=== PATIENT | male | born 1950 | race Caucasian/White ===

== ENCOUNTER → 2021-03-13 10:10 | Outpatient (CLI) | payer MEDICARE, SELFPAY | PROVIDERS: Visit Provider Urology | DX: R30.0 Dysuria (principal); N21.0 Calculus in bladder; R97.20 Elevated prostate specific antigen [PSA]; R31.29 Other microscopic hematuria; N40.2 Nodular prostate without lower urinary tract symptoms; R35.0 Frequency of micturition; R82.81 Pyuria; R20.0 Anesthesia of skin; Z68.22 Body mass index [BMI] 22.0-22.9, adult | CPT/HCPCS: 51798; 81002; 87086; 99215 ==

== ENCOUNTER → 2021-04-10 07:59 | Outpatient (CLI) | payer MEDICARE, SELFPAY | PROVIDERS: Visit Provider Urology | DX: N20.0 Calculus of kidney (principal); N21.0 Calculus in bladder; R35.0 Frequency of micturition; R97.20 Elevated prostate specific antigen [PSA]; R31.29 Other microscopic hematuria; Z80.42 Family history of malignant neoplasm of prostate | CPT/HCPCS: 81002; 87086; 99214 ==

== ENCOUNTER → 2021-05-07 08:56 | Outpatient (CLI) | payer MEDICARE, SELFPAY ==
[2021-05-07 09:19] LABS: COVID19 -Nasal RAPID Negative (Negative)
== END ==
PROVIDERS: Visit Provider Urology
DX: Z20.822 Contact with and (suspected) exposure to COVID-19 (principal)
CPT/HCPCS: 87635; C9803

== ENCOUNTER 2021-05-09 07:00 | Day surgery (SDC) | payer MEDICARE, SELFPAY ==
[2021-05-02 08:14] VITALS: BMI 21.6
[2021-05-09] VITALS (9 sets, daily range): BP systolic 124–150; BP diastolic 55–88; PULSE 54–67; RESP 7–18; TEMP 36.2–36.6; O2SAT 94–97; BMI 21.6
--- NOTE | 2021-05-09 07:41 | PM.PREOP ---
Pre-operative Note COVID-19 COVID-19 status: Negative Result date/Date tested (Pos, Neg/Pending): 05/07/21 Interval Note History & Physical reviewed/Exam performed by Physician: Yes Changes to H&P: No
[2021-05-09] MEDS: CEFAZOLIN 1 GM VIAL 2 GM IV (08:00)
--- NOTE | 2021-05-09 08:26 | SUR.OPER ---
Lithotomy on padded OR bed, head on pillow, arms secured on padded arm boards at <90 degrees abduction. Legs secured in padded yellow fins stirrups.
[2021-05-09] MEDS: LIDOCAINE 2% (GLYDO) 6 ML GEL TOP (08:38)
--- NOTE | 2021-05-09 09:10 | SUR.OPER ---
Addendum entered by Hunter Cohen R.N. 05/09/21 09:42: final 32watt, 29.510 min, 56.649kJ Original Note: laser time 28.54min, 32watts, 55.479kJ
[2021-05-09] MEDS: BELLADONNA/OPIUM SUPPOSITORIES 1 EACH PR (09:38)
--- NOTE | 2021-05-09 10:21 | PM.OP.1 ---
Procedure & Clinicians Procedure: Laser cystolitholapaxy Same procedure as scheduled: Yes Indications: Very pleasant gentleman with a large bladder calculus presents today for cysto litholapaxy. Surgeon: Vinny Estrada Click Yes if Unassisted: Yes Anesthesia Type: General Operative Notes Findings: Urethra normal prostatic fossa which shows minimal to moderate obstructive character. He does have an elevated bladder neck. There is a large crystalline stone in the floor of the bladder which appeared to be in the 3-3 and 0.5 cm range. The superficial layer was very crystalline cleared of whitish in color and softer. The inner core was hard brown polanco and irregular. Ureteral orifices in normal position with clear efflux normal bladder mucosa. Closure Type: not applicable Applied: catheter Estimated Blood Loss (mL): 50 Blood products transfused: none Procedure in detail: After informed consent was obtained the patient was identified and brought to the operating room. In the operating room he was placed in a supine position the table anesthesia was induced. He was then transitioned to the lithotomy position prepped with a sterilizing prepped draped in a sterile fashion for transurethral procedure. After prepping and draping ensuring an adequate love anaesthesia a laser resectoscope was then inserted and cystoscopy performed. The laser fiber was then put in place and using laser energy the stone was fragmented sequentially. The laser was set to the ?bladder stone ?setting. The outer surface was quite soft and easily broken up the inner core was very hard but was then broken up. Laser fiber was then removed after being placed on standby and helix evacuator was then used to evacuate fragments. The laser fiber was then reinserted and points of bleeding controlled with the cautery setting on the laser. Some of the fragments were adherent to the wall of the bladder and the laser scope was removed with the laser on standby. Cystoscope was inserted and then using a grasping forceps as much of the stony debris, as could be safely dislodged from the wall of the bladder, was dislodged. With this achieved and the majority of the fragments removed the bladder was filled drained in fill hemostasis was adequate. The bladder was left full scope was removed and a Harry catheter 22 [place] tip was passed through the urethra and into the bladder after instilling 2% viscous lidocaine into the urethra. Balloon was filled 10 cc of sterile water and placed to gravity drainage. Prior to being placed to gravity drainage the bladder was irrigated to the urine was blush colored. With this in place the catheter was placed to gravity drainage again and transferred to the postanesthesia care unit having tolerated the procedure well. The patient is to follow-up in my office next Thursday morning for catheter removal. Patient will be discharged with Pyridium and Ditropan. Complications: none Post-operative Condition: stable Disposition: PACU Plan for aftercare: Patient is to be discharged home to follow-up as noted above.
[2021-05-09] MEDS: PHENAZOPYRIDINE 100 MG TABLET 200 MG PO (10:35)
[2021-05-09] MEDS: ACETAMINOPHEN 325 MG TABLET 650 MG PO (10:36)
[2021-05-09] MEDS: OXYBUTYNIN 5 MG TABLET PO (10:37)
[2021-05-16 09:34] LABS: Ca oxalate dihydrate 70 % (.); Ca oxalate monohydr 30 % (.); Size 5x5 mm (.)
== END 2021-05-09 11:00 | disposition home or self-care (01) ==
PROVIDERS: Referring Provider Urology; Visit Provider Urology
PROC: 0TCB8ZZ Extirpation of Matter from Bladder, Via Natural or Artificial Opening Endoscopic (ICD-10-PCS; CPT 52318; principal; 2021-05-09 07:45)
DX: N21.0 Calculus in bladder (principal)
CPT/HCPCS: 52318; 82365; 82962; J0690; J2405; J2704; J3010

== ENCOUNTER 2021-05-10 14:42 | Emergency (ER) | payer MEDICARE, SELFPAY ==
[2021-05-10] VITALS (8 sets, daily range): BP systolic 104–129; BP diastolic 55–60; PULSE 61–100; RESP 15–24; TEMP 37.6–38.1; O2SAT 94–95; BMI 22.1
--- NOTE | 2021-05-10 14:55 | DI.RAD.S_ITS ---
PROCEDURE: XR CHEST 1V INDICATIONS: suspected sepsis TECHNIQUE: One view of the chest was acquired. COMPARISON: None. FINDINGS: Surgical changes and devices: None. Lungs and pleura: Lungs are clear. No pleural effusions or pneumothorax. Lungs hyperinflated suggesting COPD. Mediastinum: Mediastinal contours appear normal. Heart size is normal. Bones and chest wall: No suspicious bony lesions. Overlying soft tissues appear unremarkable. IMPRESSION: No acute cardiopulmonary disease process. Dictated by: Yadira Garduno MD, PhD on 05/10/2021 at 15:12 Approved by: Yadira Garduno MD, PhD on 05/10/2021 at 15:13
[2021-05-10] MEDS: SODIUM CHLORIDE 0.9% 1,000 ML 1000 ML IV ×2 (15:13→16:49)
[2021-05-10 15:36] LABS: Add Manual Diff / Slide Review NO; Basophils Absolute Auto 0 /uL (0-100); Basophils Percent Auto 0.3 % (0-2); Eosinophils Absolute Auto 0 /uL (0-450); Hematocrit 43.4 % (41-53); Hemoglobin 14.6 g/dL (13.5-17.5); Lymphocytes Absolute Auto 300 /uL (1100-4500); Mean Corpuscular HGB Conc 33.5 % (30-36); Mean Corpuscular Hemoglobin 32.5 PG (26-34); Mean Corpuscular Volume 96.8 fL (80-100); Monocytes Absolute Auto 600 /uL (0-900); Monocytes Percent Auto 3.8 % (3-14); Neutrophils Absolute Auto 15200 /uL (1500-7000); Neutrophils Percent Auto 93.9 % (50-75); Platelet Count 210 X10^3/uL (150-400); Red Blood Cell Count 4.48 X10^6/uL (4.5-5.9); Red Cell Distribution Width 14.1 % (11.6-14.8); White Blood Cell Count 16.2 X10^3/uL (4.5-11.0)
[2021-05-10 15:54] LABS: Lactate (Lactic Acid) 1.4 mmol/L (0.7-2.1)
[2021-05-10 15:57] LABS: Alanine Aminotransferase 21 IU/L (<50); Albumin 3.8 g/dL (3.5-5.0); Albumin Globulin Ratio 1.1 (1.0-2.8); Alkaline Phosphatase 47 U/L (38-126); Aspartate Aminotransferase 36 IU/L (17-59); BUN Creatinine Ratio 18.1 (6-22); Bilirubin Total 0.7 mg/dL (0.2-1.3); Blood Urea Nitrogen 32 mg/dL (9-20); Calcium 9.4 mg/dL (8.4-10.2); Carbon Dioxide 22 mmol/L (22-32); Chloride 102 mmol/L (98-107); Globulin 3.4 g/dL (1.7-4.1); Glucose 127 mg/dL (80-110); HEMOLYSIS 20 (0-50); Lipase 16 U/L (23-300); Potassium 3.9 mmol/L (3.4-5.1); Sodium 131 mmol/L (137-145); Total Protein 7.2 g/dL (6.3-8.2)
[2021-05-10 16:12] LABS: Procalcitonin 10.2 ng/mL (<0.5)
--- NOTE | 2021-05-10 16:36 | ED.SEPSIS ---
HPI - Sepsis General Chief Complaint: Fever Mode of arrival: Wheelchair Source: patient Limitations: no limitations Evaluation Sepsis Screen: Possible Sepsis Risk Sepsis Infection Criteria Present: Suspected New Infection Narrative: Patient is a 71-year-old male With history of kidney stones and bladder stone presenting stone removal yesterday and Harry catheter has been placed. He has been dizzy weak and increased falls. He is currently febrile with a temperature a 100.8?. says that he has been sleeping most of the day and yesterday as well. She denies any confusion. However when patient stands up he gets little bit dizzy and lightheaded. He has hit his head but no loss of consciousness. He is not on any antiplatelet or anticoagulation medication. He has no new numbness tingling or weakness. He has no abdominal pain chest pain or shortness of breath. Harry catheter is in place. Review of Systems Review of Systems Narrative: GENERAL:+ fever, see HPI HEENT: Denies sinus pain, ear pain, sore throat, difficulty swallowing, neck pain RESPIRATORY: Denies dyspnea, cough, wheezing, hemoptysis, sputum. CARDIOVASCULAR: Denies chest pain, palpitations, orthopnea, edema GASTROINTESTINAL: Denies nausea, vomiting, abdominal pain, diarrhea, constipation, melena. : See HPI MUSCULOSKELETAL: Denies weakness, joint pain, or bony pain SKIN: No rash, no erythema, no pruritus NEUROLOGIC: Denies weakness, dizziness, headache, numbness, change in speech, confusion PSYCHIATRIC: No concerning psychosocial issues. 12 point review of systems is negative except for those stated above and HPI Patient History Medical History (Updated 05/10/21 @ 19:05 by Janie Johns DO) Bladder calculus Elevated PSA Family history of prostate cancer Hematuria Kidney stones Prostate nodule Pyuria Renal calculus Urinary frequency Surgical History (Updated 05/02/21 @ 08:22 by Terra Veliz RN) Hx of vasectomy (1984) Social History household members: significant other Smoking Status: Never smoker alcohol intake: current Smoking Status: Never smoker alcohol intake frequency: a few times a week Substance Use Type: does not use Exam Initial Vital Signs Initial Vital Signs: Vital Signs Temperature 100.5 F H 05/10/21 14:51 Pulse Rate 100 H 05/10/21 14:51 Respiratory Rate 20 05/10/21 14:51 Blood Pressure 104/55 L 05/10/21 14:51 Pulse Oximetry 94 05/10/21 14:51 GENERAL: Alert 71-year-old male appears to not feel well HEENT: Head atraumatic, no laceration depression crepitation pupils reactive, face symmetric, moist mucous membranes NECK: Neck is supple full flexion and extension CARDIOVASCULAR: Regular rate and rhythm without murmurs, rubs or gallops. RESPIRATORY: Breath sounds equal bilaterally, no wheezes rales or rhonchi. ABDOMEN: Soft, nontender. Normoactive bowel sounds all 4 quadrants. No guarding or rebound. : Harry catheter in place EXTREMITIES: Normal range of motion, no clubbing or edema. Neurovascularly intact NEUROLOGICAL: Alert and oriented x4.Normal gait and speech. Security Installer strength equal bilaterally SKIN: Warm, dry, no laceration, no petechiae, no rashes or lesions. Scores NIH Stroke Scale Level of Conciousness: Alert, keenly responsive Ask month/age: Answers both questions correctly. Open/close eyes, close hand: Performs both tasks correctly Best gaze horizontal: Normal Visual fleming: No visual loss Facial palsy: Normal symetrical movement Left arm drift: No drift for full 10 sec Right arm drift: No drift for full 10 sec Left leg drift: No drift for full 5 sec Right leg drift: No drift for full 5 sec Limb ataxia: Absent Sensory on face/arms/legs: Normal, no sensory loss Best language: No aphasia, normal Dysarthria: Normal Extinction or inattention: No abnormality Total NIH Stroke scale score: 0 Course Orders Ordered: ED Orders 05/10/21 14:55 XR chest 1V Stat EKG-12 Lead Stat RT Consult Eval and Treat Now 05/10/21 15:00 Complete Blood Count AUTO DIFF Stat Comprehensive Metabolic Panel Stat Lactate (Lactic Acid) Stat Lipase Stat Procalcitonin Stat 05/10/21 15:24 Blood Culture Stat 05/10/21 17:50 COVID19 -Nasal swab/Pre-Proc Stat Urinalysis and Microscopic Stat Urine Culture Stat 05/10/21 18:26 CT head/brain wo con Stat Discontinued Medications Acetaminophen (Acetaminophen 325 Mg Tablet) 975 mg PO NOW ONE Stop: 05/10/21 16:37 Last Admin: 05/10/21 16:48 Dose: 975 mg Documented by: SIOBHAN Sodium Chloride (Normal Saline 0.9%) 1,000 mls @ 1,000 mls/hr IV BOLUS ONE Stop: 05/10/21 15:54 Last Infusion: 05/10/21 16:35 Dose: 0 mls/hr Documented by: Admin: 05/10/21 15:13 Dose: 1,000 mls/hr Documented by: DARON Sodium Chloride (Normal Saline 0.9%) 1,000 mls @ 1,000 mls/hr IV BOLUS ONE Stop: 05/10/21 17:35 Last Infusion: 05/10/21 18:06 Dose: 1,000 mls/hr Documented by: Admin: 05/10/21 16:49 Dose: 1,000 mls/hr Documented by: SIOBHAN Ceftriaxone Sodium 1,000 mg/ (Sodium Chloride) 100 mls @ 200 mls/hr IV NOW ONE Stop: 05/10/21 18:27 Last Infusion: 05/10/21 19:31 Dose: 0 mls/hr Documented by: Admin: 05/10/21 18:41 Dose: 200 mls/hr Documented by: SIOBHAN Vital Signs Vital signs: Vital Signs - 8 hr 05/10/21 14:51 05/10/21 16:36 05/10/21 17:00 Temperature 100.5 F H Pulse Rate 100 H 86 82 Respiratory Rate 20 15 24 Blood Pressure 104/55 L 126/60 Pulse Oximetry 94 95 94 05/10/21 17:30 05/10/21 18:00 05/10/21 18:04 Temperature 99.6 F Pulse Rate 80 66 Respiratory Rate 24 24 Blood Pressure 129/60 Pulse Oximetry 94 95 05/10/21 18:30 05/10/21 19:00 Temperature Pulse Rate 73 61 Respiratory Rate 22 Blood Pressure 129/60 Pulse Oximetry 94 95 MDM - Sepsis Lab Data Result diagrams: 05/10/21 15:00 05/10/21 15:00 Labs: Lab Results 05/10/21 05/10/21 05/10/21 Range/Units 15:00 15:00 15:00 WBC 16.2 H (4.5-11.0) X10^3/uL RBC 4.48 L (4.5-5.9) X10^6/uL Hgb 14.6 (13.5-17.5) g/dL Hct 43.4 (41-53) % MCV 96.8 (80-100) fL MCH 32.5 (26-34) PG MCHC 33.5 (30-36) % RDW 14.1 (11.6-14.8) % Plt Count 210 (150-400) X10^3/uL Neut % (Auto) 93.9 H (50-75) % Lymph % (Auto) 2.0 L (25-40) % [place] % (Auto) 3.8 (3-14) % Eos % (Auto) 0.0 L (2-4) % Baso % (Auto) 0.3 (0-2) % Neut # (Auto) 59181 H (5556-8287) /uL Lymph # (Auto) 300 L (0524-0991) /uL [place] # (Auto) 600 (0-900) /uL Eos # (Auto) 0 (0-450) /uL Baso # (Auto) 0 (0-100) /uL Sodium 131 L (137-145) mmol/L Potassium 3.9 (3.4-5.1) mmol/L Chloride 102 (98-107) mmol/L Carbon Dioxide 22 (22-32) mmol/L BUN 32 H (9-20) mg/dL Creatinine 1.77 H (0.66-1.25) mg/dL Estimated GFR 38.0 L (>60) mL/min BUN/Creatinine Ratio 18.1 (6-22) Glucose 127 H (80-110) mg/dL Lactate 1.4 (0.7-2.1) mmol/L Calcium 9.4 (8.4-10.2) mg/dL Total Bilirubin 0.7 (0.2-1.3) mg/dL AST 36 (17-59) IU/L ALT 21 (<50) IU/L Alkaline Phosphatase 47 (38-126) U/L Total Protein 7.2 (6.3-8.2) g/dL Albumin 3.8 (3.5-5.0) g/dL Globulin 3.4 (1.7-4.1) g/dL Albumin/Globulin Ratio 1.1 (1.0-2.8) Lipase 16 L (23-300) U/L Procalcitonin 10.2 H (<0.5) ng/mL Urine Color Urine Appearance Urine pH (4.5-8.0) Ur Specific [place] (1.000-1.035) Urine Protein (Negative) Urine Glucose (UA) (Negative) g/dL Urine Ketones (NEGATIVE) Urine Occult Blood (Negative) Urine Nitrate (Negative) Urine Bilirubin (NEGATIVE) Urine Urobilinogen (0.2) E.U./dL Ur Leukocyte Esterase (NEGATIVE) Urine RBC (0-5/HPF) Urine WBC (0-5/HPF) Ur Squamous Epith Cells (0-5/HPF) Amorphous Sediment Urine Bacteria (None) Urine Mucus (Negative) Ur Culture Indicated? SARS-CoV-2 (PCR) (Negative) 05/10/21 05/10/21 Range/Units 17:50 17:50 WBC (4.5-11.0) X10^3/uL RBC (4.5-5.9) X10^6/uL Hgb (13.5-17.5) g/dL Hct (41-53) % MCV (80-100) fL MCH (26-34) PG MCHC (30-36) % RDW (11.6-14.8) % Plt Count (150-400) X10^3/uL Neut % (Auto) (50-75) % Lymph % (Auto) (25-40) % [place] % (Auto) (3-14) % Eos % (Auto) (2-4) % Baso % (Auto) (0-2) % Neut # (Auto) (8140-9920) /uL Lymph # (Auto) (5583-5584) /uL [place] # (Auto) (0-900) /uL Eos # (Auto) (0-450) /uL Baso # (Auto) (0-100) /uL Sodium (137-145) mmol/L Potassium (3.4-5.1) mmol/L Chloride (98-107) mmol/L Carbon Dioxide (22-32) mmol/L BUN (9-20) mg/dL Creatinine (0.66-1.25) mg/dL Estimated GFR (>60) mL/min BUN/Creatinine Ratio (6-22) Glucose (80-110) mg/dL Lactate (0.7-2.1) mmol/L Calcium (8.4-10.2) mg/dL Total Bilirubin (0.2-1.3) mg/dL AST (17-59) IU/L ALT (<50) IU/L Alkaline Phosphatase (38-126) U/L Total Protein (6.3-8.2) g/dL Albumin (3.5-5.0) g/dL Globulin (1.7-4.1) g/dL Albumin/Globulin Ratio (1.0-2.8) Lipase (23-300) U/L Procalcitonin (<0.5) ng/mL Urine Color Yellow Urine Appearance Cloudy Urine pH 5.5 (4.5-8.0) Ur Specific [place] 1.015 (1.000-1.035) Urine Protein 2+ H (Negative) Urine Glucose (UA) Negative (Negative) g/dL Urine Ketones Trace H (NEGATIVE) Urine Occult Blood 3+ H (Negative) Urine Nitrate Negative (Negative) Urine Bilirubin Negative (NEGATIVE) Urine Urobilinogen 0.2 (0.2) E.U./dL Ur Leukocyte Esterase 2+ H (NEGATIVE) Urine RBC 10-30/hpf H (0-5/HPF) Urine WBC 30-100/hpf H (0-5/HPF) Ur Squamous Epith Cells 0-1 /hpf (0-5/HPF) Amorphous Sediment 1+ Urine Bacteria Moderate (10-30) H (None) Urine Mucus 1+ H (Negative) Ur Culture Indicated? Specimen cultured SARS-CoV-2 (PCR) Negative (Negative) Urine Dip Bedside Urine Glucose Negative Bedside Urine Bilirubin - Negative Bedside Urine Ketone - Negative Urine Specific [place] 1.015 Bedside Urine Occult Blood +++ Bedside Urine pH 6.0 Bedside Urine Protein + 30 Bedside Urine Urobilinogen - Negative Bedside Urine Nitrite - Negative Bedside Urine Leukocytes ++ 125 Esterase Imaging Data Chest x-ray: Radiologist's Impression: PROCEDURE:? XR CHEST 1V ? INDICATIONS:? suspected sepsis ? TECHNIQUE:? One view of the chest was acquired.? ? COMPARISON:? None. ? FINDINGS:? ? Surgical changes and devices:? None.? ? Lungs and pleura:? Lungs are clear.? No pleural effusions or pneumothorax.? Lungs hyperinflated suggesting COPD.? ? Mediastinum:? Mediastinal contours appear normal.? Heart size is normal.? ? Bones and chest wall:? No suspicious bony lesions.? Overlying soft tissues appear unremarkable.? ? IMPRESSION:? No acute cardiopulmonary disease process. ? ? Dictated by: Yadira Garduno MD, PhD on 05/10/2021 at 15:12 ? ? ECG Data Interpretation: Normal sinus rhythm rate 97 year interval 160 QRS [address] changes MDM Narrative Medical decision making narrative: Patient is postoperative day 1. After lithotripsy of bladder calculus presenting with low-grade fever of 100.5 leukocytosis and UTI. Vitals have been within normal limits does not meet severe sepsis criteria. He is given a L of fluid and antibiotics in the emergency department. He has no new focal attic deficits causing dizziness I suspect it is fever and infection. Nonetheless head CT is done and does not show any abnormality. Discussed with and patient home outpatient antibiotics and return as needed. Both are in agreeance to this plan. Discharge Plan Departure Patient Disposition: Home Clinical Impression: Acute UTI Instructions: DI for Urinary Tract Infection (UTI) Activity Restrictions/Additional Instructions: *You have been diagnosed with UTI *What to do: At this time you have an infection which is likely causing the increased sleepiness. Please stay hydrated and take antibiotics as directed. l *Continue to take medications as directed Tylenol 650 mg every 4-6 hours if needed for fever or pain Keflex 500 mg twice a day for 10 days *Follow up with your primary care provider in 2-3 days Follow-up with urology next week *Return to ER if you should have increasing confusion, increasing weakness, not tolerating fluidsany new, worsening or concerning symptoms Prescriptions: No Action oxybutynin chloride 5 mg tablet 5 mg PO BID-TID PRN (Reason: bladder spasms) Qty: 30 RF: 0 phenazopyridine [Pyridium] 200 mg tablet 200 mg PO TID PRN (Reason: Bladder irritation) Qty: 30 RF: 0 Referrals: Vinny Estrada MD [Physician] -
[2021-05-10] MEDS: ACETAMINOPHEN 325 MG TABLET 975 MG PO (16:48)
[2021-05-10 18:07] LABS: Appearance Urine UA CLOUDY; Bilirubin Urine UA NEGATIVE (NEGATIVE); Color Urine UA YELLOW; Glucose Urine UA NEGATIVE (Negative); Ketones Urine UA TRACE (NEGATIVE); Leukocyte Esterase Urine UA 2+ (NEGATIVE); Nitrite Urine UA NEGATIVE (Negative); Occult Blood Urine UA 3+ (Negative); Protein Urine UA 2+ (Negative); Specific Gravity Urine UA 1.015 (1.000-1.035); Urobilinogen Urine UA 0.2 E.U./dL (0.2); pH Urine UA 5.5 (4.5-8.0)
[2021-05-10 18:15] LABS: Amorphous Sediment Urine 1+; Bacteria Urine Moderate (10-30); RBC Urine 10-30/HPF (0-5/HPF); Squamous Epithelial Cell Urine 0-1 /HPF (0-5/HPF); WBC Urine 30-100/HPF (0-5/HPF)
[2021-05-10 18:16] LABS: Culture Indicated Urine Specimen Cultured; Mucus Urine 1+ (Negative)
--- NOTE | 2021-05-10 18:26 | DI.CT.S_ITS ---
PROCEDURE: CT HEAD/BRAIN WO CON INDICATIONS: weakness falls TECHNIQUE: Noncontrast 4.5 mm thick angled axial sections acquired from the foramen magnum to the vertex, with coronal and sagittal reformats. For radiation dose reduction, the following was used: automated exposure control, adjustment of mA and/or kV according to patient size. COMPARISON: None. FINDINGS: Image quality: Excellent. CSF spaces: Basal cisterns are patent. No extra-axial fluid collections. The ventricles are symmetric in size and shape. Brain: No intracranial bleeds or masses. There is cerebral volume loss for age, with resultant ventricular and sulcal prominence. There are periventricular and deep white matter chronic small vessel ischemic changes. There is intracranial internal carotid artery atherosclerosis. Skull and face: Calvarium and visualized facial bones appear intact, without suspicious lesions. Sinuses: Visualized sinuses and mastoids are clear. IMPRESSION: 1. No CT evidence of acute intracranial process. 2. Age-appropriate exam. Dictated by: Genoveva Hills M.D. on 05/10/2021 at 19:02 Approved by: Genoveva Hills M.D. on 05/10/2021 at 19:06
[2021-05-10] MEDS: cefTRIAXone 1,000 MG in SODIUM CHLORIDE 0.9% 100 ML 200 ML IV (18:41)
[2021-05-10 19:00] LABS: COVID19 -Nasal RAPID Negative (Negative)
== END 2021-05-10 19:34 | disposition home or self-care (01) ==
PROVIDERS: Emergency Provider Emergency Medicine
DX: N39.0 Urinary tract infection, site not specified (principal); S09.90XA Unspecified injury of head, initial encounter; R29.6 Repeated falls; Z20.822 Contact with and (suspected) exposure to COVID-19
CPT/HCPCS: 36415; 70450; 71045; 80053; 81001; 81003; 83605; 83690; 84145; 85025; 87040; 87086; 87635; 93005; 96361; 96365; 99284; C9803; J0696

== ENCOUNTER → 2021-05-31 09:50 | Outpatient (CLI) | payer MEDICARE, SELFPAY | PROVIDERS: Visit Provider Urology | DX: R35.0 Frequency of micturition (principal) | CPT/HCPCS: 87086 ==

== ENCOUNTER → 2021-05-31 11:16 | Outpatient (CLI) | payer MEDICARE, SELFPAY ==
--- NOTE | 2021-05-31 | DI.RAD.S_ITS ---
PROCEDURE: XR KUB INDICATIONS: Calculus of kidney, calculus ib bladder TECHNIQUE: One view of the abdomen acquired. COMPARISON: None. FINDINGS: Surgical changes and devices: None. Bowel: Bowel gas pattern is normal. Soft tissues: No suspicious abdominal calcifications. Visualized solid organ contours appear normal in size. No renal calculi identified. Moderately large fecal debris. Bones: No suspicious bony lesions. IMPRESSION: Moderately large fecal debris. No renal calculi identified. Dictated by: Linden Taylor M.D. on 05/31/2021 at 11:51 Approved by: Linden Taylor M.D. on 05/31/2021 at 11:53
== END ==
PROVIDERS: Referring Provider Urology; Visit Provider Urology
DX: N21.0 Calculus in bladder (principal); N20.0 Calculus of kidney; R35.0 Frequency of micturition; N39.44 Nocturnal enuresis; R97.20 Elevated prostate specific antigen [PSA]; R31.29 Other microscopic hematuria; R82.81 Pyuria; Z80.42 Family history of malignant neoplasm of prostate
CPT/HCPCS: 74018; 81002; 87086; 99214

== ENCOUNTER → 2021-06-11 10:09 | Outpatient (CLI) | payer MEDICARE, SELFPAY | PROVIDERS: Referring Provider Urology; Visit Provider Urology | DX: N39.0 Urinary tract infection, site not specified (principal); N39.44 Nocturnal enuresis; N20.0 Calculus of kidney; N21.0 Calculus in bladder; R97.20 Elevated prostate specific antigen [PSA]; R35.0 Frequency of micturition; Z80.42 Family history of malignant neoplasm of prostate; R82.81 Pyuria; R31.29 Other microscopic hematuria; Z68.21 Body mass index [BMI] 21.0-21.9, adult | CPT/HCPCS: 81002; 87086; 99214 ==

== ENCOUNTER → 2024-01-27 15:14 | Outpatient (CLI) | payer MEDICARE, SELFPAY | PROVIDERS: Visit Provider Urology | DX: R35.0 Frequency of micturition (principal) | CPT/HCPCS: 87086 ==

== ENCOUNTER → 2024-01-27 15:43 | Outpatient (CLI) | payer MEDICARE, SELFPAY ==
--- NOTE | 2024-01-27 15:45 | DI.RAD.S_ITS ---
PROCEDURE: XR KUB INDICATIONS: Rule out bladder calculus TECHNIQUE: One view of the abdomen acquired. COMPARISON: None. FINDINGS: Surgical changes and devices: None. Bowel: Bowel gas pattern is normal. Soft tissues: No suspicious abdominal calcifications. Visualized solid organ contours appear normal in size. Several pelvic phleboliths as well as calcification the prostate noted. Degenerative changes in the lumbar spine. Moderate fecal debris throughout the colon Bones: No suspicious bony lesions. IMPRESSION: Limited assessment of the bladder with overlying pelvic phleboliths and probable prostatic calcification. Bladder calculi not excluded. Consider follow-up CT pelvis Approved by: Maco Elizondo M.D. on 01/27/2024 at 19:37
== END ==
PROVIDERS: Referring Provider Urology; Visit Provider Urology
DX: N20.0 Calculus of kidney (principal); R35.0 Frequency of micturition; Z87.442 Personal history of urinary calculi; Z87.448 Personal history of other diseases of urinary system
CPT/HCPCS: 74018; 87086

== ENCOUNTER → 2024-02-10 11:36 | Outpatient (CLI) | payer MEDICARE, SELFPAY ==
[2024-02-10 13:29] LABS: Appearance Urine UA CLOUDY; Bilirubin Urine UA NEGATIVE (NEGATIVE); Color Urine UA YELLOW; Glucose Urine UA NEGATIVE (Negative); Ketones Urine UA NEGATIVE (NEGATIVE); Leukocyte Esterase Urine UA 1+ (NEGATIVE); Nitrite Urine UA NEGATIVE (Negative); Occult Blood Urine UA 3+ (Negative); Protein Urine UA 1+ (Negative); Urobilinogen Urine UA 0.2 E.U./dL (0.2); pH Urine UA 5.5 (4.5-8.0)
[2024-02-10 13:38] LABS: Bacteria Urine None Seen; Culture Indicated Urine Specimen Cultured; RBC Urine 10-30/HPF (0-5/HPF); Squamous Epithelial Cell Urine 1-5 /HPF (0-5/HPF); Urine Volume 10mL (spun); WBC Urine 5-10/HPF (0-5/HPF)
== END ==
PROVIDERS: Urology; Referring Provider Specialist; Visit Provider Specialist
DX: N21.0 Calculus in bladder (principal); R31.29 Other microscopic hematuria; R35.0 Frequency of micturition; R82.81 Pyuria; N20.0 Calculus of kidney; N39.44 Nocturnal enuresis; Z87.448 Personal history of other diseases of urinary system
CPT/HCPCS: 81001; 87086

== ENCOUNTER → 2024-02-17 13:27 | Outpatient (CLI) | payer MEDICARE, SELFPAY | PROVIDERS: Referring Provider Urology; Visit Provider Urology | DX: R31.29 Other microscopic hematuria (principal); R35.0 Frequency of micturition; R82.81 Pyuria; R97.20 Elevated prostate specific antigen [PSA]; N39.44 Nocturnal enuresis; Z80.42 Family history of malignant neoplasm of prostate | CPT/HCPCS: 51798; 81002; 87086; 99214 ==

== ENCOUNTER → 2024-02-23 10:53 | Outpatient (CLI) | payer MEDICARE, SELFPAY ==
[2024-02-23 11:30] LABS: HEMOLYSIS < 15 (0-50)
[2024-02-23 11:36] LABS: BUN Creatinine Ratio 21.7 (6-22); Blood Urea Nitrogen 25 mg/dL (9-20); Carbon Dioxide 30 mmol/L (22-32); Chloride 107 mmol/L (98-107); Estimated Glomerular Filt Rate > 60 mL/min (>60); Glucose 95 mg/dL (80-110); Potassium 5.3 mmol/L (3.4-5.1); Sodium 138 mmol/L (137-145)
== END ==
PROVIDERS: Referring Provider Urology; Visit Provider Urology
DX: Z87.448 Personal history of other diseases of urinary system (principal)
CPT/HCPCS: 36415; 80048

== ENCOUNTER → 2024-02-23 10:58 | Outpatient (CLI) | payer MEDICARE, SELFPAY ==
--- NOTE | 2024-02-23 12:30 | DI.CT.S_ITS ---
PROCEDURE: CT ABDOMEN PELVIS WO/W CON INDICATIONS: Persistent pyuria hematuria and dysuria TECHNIQUE: Optional 5 mm thick noncontrast images acquired from the diaphragm to the symphysis pubis. After the administration of intravenous contrast, 5 mm thick images acquired from the diaphragm to the symphysis pubis after a 10-minute delay. 2 mm thick coronal and sagittal reformats were then performed of the kidneys and ureters. For radiation dose reduction, the following was used: automated exposure control, adjustment of mA and/or kV according to patient size. COMPARISON: None. FINDINGS: Image quality: Diagnostic Lower chest: Basal atelectasis/scarring. Left Bochdalek's hernia, containing fat. There are coronary calcifications. Small hiatal hernia. Liver: Subcentimeter lesions are too small to characterize, usually cysts. Gallbladder and biliary system: Unremarkable, nondilated Pancreas: No ductal dilation Spleen: Nonenlarged Adrenals: No discrete nodules Kidneys: Lobulated contours, particularly of the right kidney, likely scarring. 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 Subcentimeter lesions are too small to characterize, usually cysts. No solid renal mass otherwise. On noncontrast imaging, no calcified stone is identified. There is mild ureter dilation extending to the UVJ. There is wall thickening of the right distal ureter adjacent to the UVJ (4/171). There is an 8 x 9 x 7 millimeters stone, likely within the posterior dependent portion of the bladder, but is seen immediately adjacent to the right UVJ. This measures over 1000 Hounsfield units. Vessels and lymph nodes: The main portal vein is patent. No abdominal aortic aneurysm. No pathologic lymph nodes by size criteria Bowel and peritoneum: No evidence of small bowel obstruction. No pathologic ascites or drainable abscess. Colonic diverticula are seen. Body wall: Right inguinal hernia contains a loop of nonobstructed small bowel and fat. Tiny fat containing umbilical hernia also present Pelvis: The bladder appears irregular, with focal wall thickening at the anterior left wall measuring up to 1.4 centimeters in thickness. Prostate is heterogeneous and not well assessed on this study Bones: No acute or suspicious osseous finding. There are degenerative changes. 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 Otherwise, no significant upper tract disease on CT IVP. Irregular wall thickening of the bladder, most focally in the left anterior wall. There is also wall thickening of the right distal ureter. Bilateral ureter ectasia. These findings are suspicious for urothelial malignancy. And 8 x 9 x 7 millimeter calculus is seen in the posterior dependent portion of the bladder, immediately adjacent to the right UVJ. Right inguinal hernia containing a loop of nonobstructed small bowel. Other findings as above. Dictated by: Silvino Marrero M.D. on 02/23/2024 at 12:46 Approved by: Silvino Marrero M.D. on 02/23/2024 at 12:54
== END ==
PROVIDERS: Referring Provider Urology; Visit Provider Urology
DX: R31.9 Hematuria, unspecified (principal); R82.81 Pyuria; N21.0 Calculus in bladder; N32.9 Bladder disorder, unspecified; K44.9 Diaphragmatic hernia without obstruction or gangrene; K40.90 Unilateral inguinal hernia, without obstruction or gangrene, not specified as recurrent; N28.82 Megaloureter; K57.90 Diverticulosis of intestine, part unspecified, without perforation or abscess without bleeding; Z87.448 Personal history of other diseases of urinary system
CPT/HCPCS: 36415; 74178; 80048; Q9967

== ENCOUNTER → 2024-03-02 13:23 | Outpatient (CLI) | payer MEDICARE, SELFPAY | PROVIDERS: Visit Provider Urology | DX: R39.9 Unspecified symptoms and signs involving the genitourinary system (principal) | CPT/HCPCS: 87086 ==